=== PATIENT | male | born 1980 | race Caucasian/White ===

== ENCOUNTER 2018-04-23 10:05 | Emergency (ER) | payer SELFPAY ==
[~2018-04-23] VITALS: Ht 190.5 cm; Wt 118.2 kg
[2018-04-23 12:15] VITALS: BP 158/113
[2018-04-23] MEDS ORDERED: LORATADINE 10 MG TABLET PO ONE (12:30)
== END 2018-04-23 12:58 | disposition home or self-care (01) ==
LOC: EMS 10:07
DX: I10 Essential (primary) hypertension (principal); F15.90 Other stimulant use, unspecified, uncomplicated; F17.210 Nicotine dependence, cigarettes, uncomplicated

== ENCOUNTER 2018-08-07 19:04 | Emergency (ER) | payer SELFPAY ==
[~2018-08-07] VITALS: Ht 190.5 cm; Wt 118.2 kg
[2018-08-07] MEDS ORDERED: AmLODIPine BESYLATE 5 MG TABLET PO ONE (20:00)
[2018-08-07] MEDS ORDERED: IBUPROFEN 800 MG TABLET PO ONE (20:00)
[2018-08-07] MEDS ORDERED: COLCHICINE 0.6 MG TABLET PO ONE (20:00)
[2018-08-07 20:59] VITALS: BP 189/117
== END 2018-08-07 21:00 | disposition home or self-care (01) ==
LOC: EMS 19:04
DX: M10.9 Gout, unspecified (principal); I10 Essential (primary) hypertension; F19.90 Other psychoactive substance use, unspecified, uncomplicated; F17.210 Nicotine dependence, cigarettes, uncomplicated